=== PATIENT | male | born 1990 | race African-American/Black ===

== ENCOUNTER 2017-03-12 19:14 | Inpatient (IN) | payer MEDICARE, OTHER ==
[~2017-03-12] VITALS: Ht 193 cm; Wt 154.2 kg
[~2017-03-12 19:14] MED LIST: CLINDAMYCIN HC300 MG ORAL; IBUPROFEN600 MG ORAL
[2017-03-12 22:30] VITALS: BP 117/65
[2017-03-12] MEDS ORDERED: Haloperidol 5mg/ml Inj IM PRN (23:00)
[2017-03-13] MEDS: D5 1/2NS 1,000 ML IV SCH ×2 (00:16→09:00)
[2017-03-13] MEDS ORDERED: TraZODone 100mg tab ORAL SCH ×2 (00:30→21:00)
[2017-03-13] MEDS ORDERED: TRAZODONE HCL150 MG ORAL (02:05)
[2017-03-13] MEDS ORDERED: PRILOSEC2.5 MG ORAL (02:20)
[2017-03-13 07:42] VITALS: BP 140/78
[2017-03-13 11:30] LABS: BASOPHILS % (AUTO) 0.8 % (0.0-2.0); EOSINOPHILS % (AUTO) 1.7 % (0.0-3.0); LYMPHOCYTES % (AUTO) 17.2 % (20.0-45.0); MEAN CORPUSCULAR HEMOGLOBIN 29.7 PG (27.0-31.0); MEAN CORPUSCULAR HGB CONC 31.6 G/DL (32.0-36.0); MEAN CORPUSCULAR VOLUME 94 FL (80-99); NEUTROPHILS % (AUTO) 72.3 % (45.0-75.0); PLATELET COUNT 446 K/UL (150-450); RED BLOOD COUNT 4.59 M/UL (4.70-6.10); RED CELL DISTRIBUTION WIDTH 13.7 % (11.6-14.8); WHITE BLOOD COUNT 12.3 K/UL (4.8-10.8)
[2017-03-13 12:00] LABS: ALANINE AMINOTRANSFERASE 58 U/L (3-41); ALBUMIN/GLOBULIN RATIO 1.2 (1.0-2.7); ANION GAP 18 (5-15); ASPARTATE AMINO TRANSFERASE 76 U/L (5-40); CALCIUM 9.3 mg/dL (8.6-10.2); CARBON DIOXIDE 22 mEQ/L (20-30); CHLORIDE 100 mEQ/L (98-107); CREATININE 0.9 mg/dL (0.7-1.2); GLOMERULAR FILTRATION RATE > 60 mL/min (>60); HEMOLYSIS 0; MAGNESIUM 1.9 mg/dL (1.7-2.5); PHOSPHORUS 2.9 mg/dL (2.5-4.8); POTASSIUM 3.9 mEQ/L (3.4-4.9); SODIUM 140 mEQ/L (135-145); TOTAL PROTEIN 7.2 g/dL (6.6-8.7)
[2017-03-13] MEDS ORDERED: LORazepam 1mg tab ORAL PRN (12:00)
[2017-03-13] MEDS ORDERED: D5 1/2NS 1000ml IV ONE (16:22)
--- NOTE | 2017-03-24 06:11 | Discharge Summary 2 SIG ---
DATE OF ADMISSION: 03/12/2017 DATE OF DISCHARGE: 03/13/2017 REASON FOR ADMISSION: 26-year-old male was brought in by ambulance and [employer] to [facility]. The patient with self-reported past psychiatric history of schizophrenia and bipolar disorder. The patient was placed on a 5150 by the [employer] due to bizarre behavior and possibly stating homicidal ideation. The patient was hospitalized last month at [facility] and diagnosed with schizophrenia and bipolar disorder. He was given Abilify and trazodone. The patient stated last day he took medication, was 03/09/2017. The patient was psychotic and agitated. He required sedation in [place] emergency room. The patient was given Haldol with Versed. X-ray of the forearm was done due to the mild swelling, which was negative. Basic laboratory work in [place] revealed leukocytosis, WBC- 17.8. Stable hemoglobin and hematocrit. Creatinine - 1.34. CK - 8336. ALT -72, AST - 132, and total bilirubin -1.1. Glomerular filtration rate 63 and glucose 70. Toxic screen for alcohol and salicylate was negative. The patient was given one liter of the IV fluid by bolus. The patient was unable to be transferred to psychiatric facility from [place] due to rhabdomyolysis. Psychiatric facilities accept patient with a CK below 1000. The patient needed to be admitted for treatment for rhabdomyolysis. Transfer was arranged to [facility] along with report between doctors, and the patient was subsequently transferred for further workup. ADMITTING DIAGNOSES: 1. Rhabdomyolysis. 2. Acute psychosis with agitation. 3. Chronic psychiatric disorder. 4. Transaminitis. HOSPITAL STAY: The patient was admitted in the morning. Laboratory work in the morning was done, which showed significant improvement. CK down to 3296 from initial 8336. WBC down to 12.3. Electrolytes were stable. AST down to 76 and ALT down to 58 and creatinine down to 0.9. The patient had sitter while in the hospital, but was not cooperative, refused further laboratory work and intravenous fluids. Psychiatrist was consulted. New order for psychiatric medication was received. The patient took the medication, however, later became agitated and refused to stay in the room. The patient was in the hallway, sitting and punching the air, banging on the doors, disturbing other patients and staff. Nursing supervisor polishing and security were contacted. The patient was trying to get on the elevator. Security tried to escort the patient back to the room, but the patient was resistant. Finally, the patient went back to the room and did not allow anyone to get inside of the room. He was screaming, rambling words, grabbing sheets and food and throwing it around the room and towards the nurse and the sitter. The patient started swinging his arms towards the nurse and sitter , punching the air and kicking, which was intimidating for the nursing staff. Security was contacted once again. Shortly after, the patient opened the door and ran towards the elevator. The patient eloped at 14:30. Code flanagan was called prior to eloping. [employer] was notified at 14:45. Two [employer] officers came by 1530. Report was given with the description of the patient. Per police communications operator, the patient was not on true 5150 , hold was given by police communications operator only FINAL DIAGNOSES: 1. Rhabdomyolysis. 2. Transaminitis. 3. Acute psychosis with agitation. 4. Chronic psychiatric disorder. Jacobo Izquierdo M.D. I have been assigned to dictate discharge summary on this account and I was not involved in the patient's management. Tessa [facility] N.P. [facility]: ERIC JOB#: [id number] CC: SHELBY
== END 2017-03-13 15:00 | disposition left against medical advice (07) | DRG 558 ==
LOC: 4W 21:12 → 3E 22:25
DX: M62.82 Rhabdomyolysis (principal); F23 Brief psychotic disorder; F20.9 Schizophrenia, unspecified; F31.9 Bipolar disorder, unspecified; R74.0 Nonspecific elevation of levels of transaminase and lactic acid dehydrogenase [LDH]
CPT/HCPCS: 36415; 80053; 82550; 83735; 84100; 85025

== ENCOUNTER 2018-05-27 21:16 | Emergency (ER) | payer MEDICARE, OTHER ==
[~2018-05-27] VITALS: Ht 193 cm; Wt 146.1 kg
[~2018-05-27 21:16] MED LIST changes: +ABILIFY20 MG ORAL; +AMLODIPINE BESYL5 MG ORAL; +PRILOSEC2.5 MG ORAL; +TRAZODONE HCL150 MG ORAL; +TRILEPTAL600 MG PO; +VENTOLIN HFA18 GM INH
[2018-05-27 21:40] VITALS: BP 125/72
[2018-05-27] MEDS ORDERED: POLYTRIM OP SOL10 ML OPHTHALM (21:46)
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
[2018-05-27 22:00] VITALS: BP 125/72
== END 2018-05-27 22:00 | disposition home or self-care (01) ==
LOC: EMR 21:57
DX: H10.9 Unspecified conjunctivitis (principal); Z48.02 Encounter for removal of sutures
CPT/HCPCS: 99283